=== PATIENT | female | born 1955 | race Caucasian/White ===

== ENCOUNTER → 2019-04-02 | Day surgery (SDC) | payer MEDICARE, OTHER ==
[~2019-04-02] MED LIST: Phenylephrine 2.5% Ophth Soln 2 ML Bot EYEBOTH SCH; Tropicamide 1% Ophth Soln 15 ML Bottle EYEBOTH SCH
[2019-04-02] MEDS: Brimonidine 0.2% Ophth Soln 5 ML Bottle EYEBOTH SCH ×2 (10:17→11:04)
[2019-04-02 10:44] VITALS: BP 123/75
== END ==
LOC: JD.SDS 10:00
PROVIDERS: ATTEND Ophthalmology
DX: H26.493 Other secondary cataract, bilateral (principal); H21.543 Posterior synechiae (iris), bilateral; Z96.1 Presence of intraocular lens

== ENCOUNTER 2019-09-23 16:59 | Emergency (ER) | payer MEDICARE, OTHER ==
--- NOTE | 2019-09-23 17:14 | EDM.PDOC ---
ED HPI GENERAL MEDICAL PROBLEM - General Chief Complaint: Chest Pain Stated Complaint: CHEST PAIN OFF AND ON Time Seen by Provider: 09/23/19 17:14 - History of Present Illness INITIAL COMMENTS - FREE TEXT/NARRATIVE: The patient is an unfortunate 64-year-old female who presents emergency Department today with complaint of chest pain. Patient reports she was in her normal state of health until 2 weeks ago when she started having written episodes of sharp burning type chest pain. Patient reports that this pain is intermittent comes on and lasts several minutes then resolves. Patient works that she became concerned today because she continued to have the pain such presented the emergency department for evaluation. Patient denies any recent travel no hormone replacement therapy. 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 The fever no chills no nausea no vomiting no shortness of breath. Patient is tachycardic upon arrival in the emergency department at 120 Middle Chest Pain Score (Numeric/FACES): 5 - Related Data Allergies Allergy/AdvReac Type Severity Reaction Status Date / Time No Known Allergies Allergy Verified 09/23/19 17:22 Home Meds: Home Meds Ibuprofen 800 mg PO TID PRN #15 tablet 09/23/19 [Rx] Past Medical History - Past Health History Medical/Surgical History: Denies Medical/Surgical History Other Gastrointestinal History: ammonia level issues ED ROS GENERAL - Review of Systems Review Of Systems: See Below Constitutional: Reports: No Symptoms HEENT: Reports: No Symptoms Respiratory: Reports: No Symptoms Cardiovascular: Reports: Chest Pain, Edema. Denies: Dyspnea on Exertion Endocrine: Reports: No Symptoms GI/Abdominal: Reports: No Symptoms : Reports: No Symptoms Musculoskeletal: Reports: No Symptoms Skin: Reports: No Symptoms Neurological: Reports: No Symptoms Psychiatric: Reports: No Symptoms Hematologic/Lymphatic: Reports: No Symptoms Immunologic: Reports: No Symptoms ED EXAM, GENERAL - Physical Exam Exam: See Below Exam Limited By: No Limitations General Appearance: Alert, WD/WN, Mild Distress Throat/Mouth: Normal Inspection, Normal Lips, Normal Teeth, Normal Gums, Normal Oropharynx, Normal Voice, No Airway Compromise Head: Atraumatic, Normocephalic Neck: Normal Inspection, Supple, Non-Tender, Full Range of Motion Respiratory/Chest: No Respiratory Distress, Lungs Clear, Normal Breath Sounds, No Accessory Muscle Use, Chest Non-Tender Cardiovascular: Normal Peripheral Pulses, Tachycardia, Other (4+ edema right lower extremity 3+ edema left lower extremity) GI/Abdominal: Normal Bowel Sounds, Soft, Non-Tender, No Organomegaly, No Distention, No Abnormal Bruit, No Mass, Other (Surgical scar to epigastrium and to inferior umbilicus) Back Exam: Normal Inspection, Full Range of Motion, NT Extremities: Normal Inspection, Normal Range of Motion, Non-Tender, Normal Capillary Refill. No: Candice's Sign Neurological: Alert, Oriented, CN II-XII Intact, Normal Cognition, Normal Gait, Normal Reflexes, No Motor/Sensory Deficits Skin Exam: Warm, Dry, Intact, Normal Color, No Rash Lymphatic: No Adenopathy EKG INTERPRETATION EKG Date: 09/23/19 Time: 17:33 Rhythm: Other (ST) Rate (Beats/Min): 111 P-Wave: Present QRS: Normal ST-T: Other (NSST) QT: Normal Course - Vital Signs Last Recorded V/S: Last Vital Signs Temp 98.2 F 09/23/19 17:09 Pulse 122 H 09/23/19 17:09 Resp 16 09/23/19 17:09 BP 133/89 09/23/19 17:09 Pulse Ox 93 L 09/23/19 17:09 - Orders/Labs/Meds Orders: Active Orders 24 hr Category Date Time Status EKG Documentation Completion [RC] ASDIRECTED Care 09/23/19 17:24 Active UA RFX CLIFFORD AND CULT IF INDIC [URIN] Stat Lab 09/23/19 17:23 Ordered Sodium Chloride 0.9% [Normal Saline] 100 ml Med 09/23/19 18:30 Active IV ASDIRECTED Sodium Chloride 0.9% [Normal Saline] 100 ml Med 09/23/19 19:30 Active IV ASDIRECTED Sodium Chloride 0.9% [Saline Flush] Med 09/23/19 17:22 Active 10 ml FLUSH ASDIRECTED PRN Saline Lock Insert [OM.PC] Stat Oth 09/23/19 17:23 Ordered EKG 12 Lead [EK] Stat Ther 09/23/19 17:23 Ordered Medication Orders Sodium Chloride (Normal Saline) 100 mls @ 80 mls/hr IV ASDIRECTED PATRICIA Last Admin: 09/23/19 19:40 Dose: 80 mls/hr Sodium Chloride (Normal Saline) 100 mls @ 80 mls/hr IV ASDIRECTED PATRICIA Sodium Chloride (Saline Flush) 10 ml FLUSH ASDIRECTED PRN PRN Reason: Keep Vein Open Last Admin: 09/23/19 19:40 Dose: 10 ml Admin: 09/23/19 17:39 Dose: 10 ml Labs: Laboratory Tests 09/23/19 09/23/19 09/23/19 Range/Units 17:35 17:35 17:35 WBC 10.39 H (3.98-10.04) K/mm3 RBC 3.60 L (3.98-5.22) M/mm3 Hgb 11.7 (11.2-15.7) gm/dl Hct 36.1 (34.1-44.9) % MCV 100.3 H D (79.4-94.8) fl MCH 32.5 H (25.6-32.2) pg MCHC 32.4 (32.2-35.5) g/dl RDW Std Deviation 56.6 H (36.4-46.3) fL Plt Count 146 L (182-369) K/mm3 MPV 9.0 L (9.4-12.3) fl Neut % (Auto) 72.6 H (34.0-71.1) % Lymph % (Auto) 14.8 L (19.3-51.7) % [place] % (Auto) 9.5 (4.7-12.5) % Eos % (Auto) 2.3 (0.7-5.8) Baso % (Auto) 0.4 (0.1-1.2) % Neut # (Auto) 7.54 H (1.56-6.13) K/mm3 Lymph # (Auto) 1.54 (1.18-3.74) K/mm3 [place] # (Auto) 0.99 H (0.24-0.36) K/mm3 Eos # (Auto) 0.24 (0.04-0.36) K/mm3 Baso # (Auto) 0.04 (0.01-0.08) K/mm3 Manual Slide Review Abnormal smear Sodium 141 (136-145) mEq/L Potassium 3.8 (3.5-5.1) mEq/L Chloride 109 H (98-107) mEq/L Carbon Dioxide 25 (21-32) mEq/L Anion Gap 10.8 (5-15) BUN 11 (7-18) mg/dL Creatinine 0.6 (0.55-1.02) mg/dL Est Cr Clr Drug Dosing TNP Estimated GFR (MDRD) > 60 (>60) mL/min BUN/Creatinine Ratio 18.3 H (14-18) Glucose 121 H (80-115) mg/dL Calcium 8.2 L (8.5-10.1) mg/dL Total Bilirubin 4.0 H (0.2-1.0) mg/dL AST 85 H (15-37) U/L ALT 41 (14-59) U/L Alkaline Phosphatase 232 H (46-116) U/L Troponin I < 0.017 (0.00-0.056) ng/mL NT-Pro-B Natriuret Pep 83 (0-125) pg/mL Total Protein 7.6 (6.4-8.2) g/dl Albumin 2.1 L (3.4-5.0) g/dl Globulin 5.5 gm/dL Albumin/Globulin Ratio 0.4 L (1-2) Lipase 105 (73-393) U/L Meds: Medications Generic Name Dose Route Start Last Admin Trade Name Freq PRN Reason Stop Dose Admin Sodium Chloride 100 mls @ 80 mls/hr 09/23/19 18:30 09/23/19 19:40 Normal Saline IV 80 mls/hr ASDIRECTED PATRICIA Administration Sodium Chloride 100 mls @ 80 mls/hr 09/23/19 19:30 Normal Saline IV ASDIRECTED PATRICIA Sodium Chloride 10 ml 09/23/19 17:22 09/23/19 19:40 Saline Flush FLUSH 10 ml ASDIRECTED PRN Administration Keep Vein Open Discontinued Medications Generic Name Dose Route Start Last Admin Trade Name Freq PRN Reason Stop Dose Admin Iopamidol 100 ml 09/23/19 18:23 09/23/19 19:39 [id number] (76%) IVPUSH 09/23/19 18:24 100 ml ONETIME ONE Administration Iopamidol 100 ml 09/23/19 19:20 [id number] (76%) IVPUSH 09/23/19 19:21 ONETIME ONE - Radiology Interpretation Free Text/Narrative:: Chest x-ray interpreted by me small right pleural effusion otherwise NAD, CT chest shows "impression: #1 less than optimal pulmonary artery opacification. No findings of pulmonary embolism within the main or segmental branches. Smaller subsegmental pulmonary emboli could be missed. 2 minimal right-sided pleural effusion with minimal bibasilar atelectasis. 3 tips is present within the liver. 4 irregular enhancing finding within the posterior right lobe of the liver. As mentioned above, this is nonspecific but could possibly represent a hemangioma. If patient's history does not confirm hemangioma, nonemergent CT study performed as a hemangioma protocol could be considered. [address] Results Date: 09/23/19 - Re-Assessments/Exams Free Text/Narrative Re-Assessment/Exam: 09/23/19 20:14 She reports pain is resolved we'll discharge her home with IV Profen as needed for pain, will have patient follow up with PCP as an outpatient or return for any worsening condition Departure - Departure Time of Disposition: 20:15 Disposition: Home, Self-Care 01 Clinical Impression: Atypical chest pain Prescriptions: Ibuprofen 800 mg PO TID PRN #15 tablet PRN Reason: Pain Referrals: PCP,None [Primary Care Provider] - Forms: ED Department Discharge Additional Instructions: Home, rest, follow-up with your PCP in one week, return as needed for worsening condition - My Orders Last 24 Hours: My Active Orders 09/23/19 17:22 Sodium Chloride 0.9% [Saline Flush] 10 ml FLUSH ASDIRECTED PRN 09/23/19 17:23 UA RFX CLIFFORD AND CULT IF INDIC [URIN] Stat Saline Lock Insert [OM.PC] Stat EKG 12 Lead [EK] Stat 09/23/19 17:24 EKG Documentation Completion [RC] ASDIRECTED 09/23/19 18:30 Sodium Chloride 0.9% [Normal Saline] 100 ml IV ASDIRECTED 09/23/19 19:30 Sodium Chloride 0.9% [Normal Saline] 100 ml IV ASDIRECTED - Assessment/Plan Last 24 Hours: My Active Orders 09/23/19 17:22 Sodium Chloride 0.9% [Saline Flush] 10 ml FLUSH ASDIRECTED PRN 09/23/19 17:23 UA RFX CLIFFORD AND CULT IF INDIC [URIN] Stat Saline Lock Insert [OM.PC] Stat EKG 12 Lead [EK] Stat 09/23/19 17:24 EKG Documentation Completion [RC] ASDIRECTED 09/23/19 18:30 Sodium Chloride 0.9% [Normal Saline] 100 ml IV ASDIRECTED 09/23/19 19:30 Sodium Chloride 0.9% [Normal Saline] 100 ml IV ASDIRECTED
[2019-09-23 17:18] VITALS: BP 133/89; PULSE 122
[2019-09-23] MEDS: Sodium Chloride 0.9% 10 ML Syringe FLUSH PRN ×2 (17:39→19:40)
[2019-09-23] MEDS ORDERED: Iopamidol 755 Mg/ML 100 ML Bottle IVPUSH ONE ×2 (18:23→19:20)
[2019-09-23] MEDS ORDERED: Sodium Chloride 0.9% 100 ML IV SCH ×2 (18:30→19:30)
--- NOTE | 2019-09-23 18:36 | CR ---
Chest: Portable view of the chest was obtained. Comparison: No prior chest x-ray is available. Heart is slightly enlarged. Minimal blunting of the lateral costophrenic angles are seen suspicious for small pleural effusions. Pulmonary vessels may be slightly congested. Impression: 1. Findings suspicious for early CHF. Diagnostic code #3
--- NOTE | 2019-09-23 20:09 | CT ---
CT chest Technique: Multiple axial sections through the chest were obtained. Intravenous contrast was utilized. Study performed as a pulmonary angiogram protocol. Findings: Pulmonary arteries are not optimally opacified. No filling defects are seen within the main pulmonary arteries or within the segmental branches. Smaller subsegmental pulmonary emboli could be missed. Coronary artery calcification is noted. Aorta shows no aneurysm. No mediastinal adenopathy is seen. Hilar region show no adenopathy. Minimal right sided pleural effusion is seen. Mild atelectasis is noted within the right lung base with minimal atelectasis also seen within the left lung base. Lungs show no acute parenchymal change. Gallstones are seen within the gallbladder. TIPS is present. There is irregular enhancing lesion within the posterior right lobe of the liver which is nonspecific but does raise the possibility of hemangioma. Bone window settings were reviewed which show no acute osseous finding. Impression: 1. Less than optimal pulmonary artery opacification. No findings of pulmonary embolism within the main or segmental branches. Smaller subsegmental pulmonary emboli could be missed. 2. Minimal right-sided pleural effusion with minimal bibasilar atelectasis. 3. TIPS is present within the liver. 4. Irregular enhancing finding within the posterior right lobe of the liver. As mentioned above, this is nonspecific but could possibly represent a hemangioma. If patient's history does not confirm hemangioma, nonemergent CT study performed as a hemangioma protocol could be considered. 5. Gallstones. Diagnostic code #3
== END 2019-09-23 20:32 | disposition home or self-care (01) ==
LOC: JD.ED 16:59
DX: R07.89 Other chest pain (principal); Z79.899 Other long term (current) drug therapy
CPT/HCPCS: 36415; 71046; 71275; 80053; 83690; 83880; 84484; 85025; 93005; 96360; 99285; J7030; Q9967; 93010; 99284